=== PATIENT | male | born 1950 | race Caucasian/White ===

== ENCOUNTER 2016-05-22 12:30 | Emergency (ER) | payer OTHER ==
[2016-05-22 12:33] VITALS: TEMP 97.6; BMI 32.4
[2016-05-22] MEDS ORDERED: NS 1,000 ML IV ONE (12:47)
--- NOTE | 2016-05-22 12:47 | EDPRACDOC ---
- General Information Mode Of Arrival: Car - History of Present Illness Onset: THUR Exact Onset of Symptoms: Unknown HPI: PT STATES THAT HE FEELS DIZZY AND WEAK WHEN HE STANDS UP OFF/ON FOR THE LAST SEVERAL DAYS, PT DENIES CP OR SOBR, NO N/V/D, STATES WENT TO SEE HIS PCP TODAY AND WAS REFERRED TO THE ED BECAUSE OF LOW HEART RATE AND ABNL EKG. Symptoms Started: Reports: Suddenly, With light exertion Symptoms Description: Constant Weakness: Bilateral: Generalized Symptoms: Reports: Faintness, Weak. Denies: Change of vision, Difficult speech , Imbalance, Numbness, Near Syncope, On Med questionable toxic, Syncope, Tinnitus, Vertigo Symptom Severity: Reports: Does not affect activitiy Relevant History of: Reports: CVA. Denies: Anemia, DM, Electrolyte disorder, GI Bleed, MA, TIA Associated signs and symptoms:: Denies: GI Bleed, Chest pain, Diarrhea, Fever, Headache, Nausea, Palpitations, Vomiting <Moe Richardson - Last Filed: 05/22/16 13:57> - History of Present Illness HPI: WEAKNESS; DIZZY BUT DESCRIBES WEAKNESS; DENIES ACS SXS; SEEN AT PMD OFFICE AND SENT HERE; LABS NL; I SPOKE WITH DR. ARIAS COURTESY <Elliott Mcmahan - Last Filed: 05/22/16 14:44> - General Information Chief Complaint: Neuro Symptoms/Deficits Stated Complaint: DIZZINESS Time Seen by Provider: 05/22/16 12:40 Home Medications: Home Medications Aspirin [Aspirin EC] 81 mg PO QHS 08/28/15 Pravastatin [Pravachol] 40 mg PO HS 08/28/15 Allergies/Adverse Reactions: Allergies Allergy/AdvReac Type Severity Reaction Status Date / Time atorvastatin Allergy See Verified 05/22/16 12:33 Comments shellfish derived Allergy Hives* Verified 05/22/16 12:33 venom-honey bee Allergy Anaphylaxis Verified 05/22/16 12:33 [bee venom (honey bee)] * ED Past Medical History - History Reviewed Yes Nurses notes reviewed and agree except as marked - Patient Medical History Neurological History: Reports: Cerebrovascular Accident (04/2013 ) Cardiac History: Reports: Hypercholesterolemia Respiratory History: Musculoskeletal History: Reports: Osteoarthritis Psychological History: Denies: Substance Use Disorder Surgical History: Reports: Hernia Surgery (BILATERAL INGUINAL HERNIA REPAIR) - Family Medical History Reports: Hypertension (MOTHER, SIBLINGS), Diabetes (MOTHER BORDERLINE), Cancer ( AUNT BREAST CA), Stroke (MATERNAL AUNT AT 42), Cardiac Disorders (FATHER), Respiratory Disorders (Dad- COPD, emphysema) - Social Medical History Smoking Status: Former smoker Social History: Denies: Substance Use Disorder ETOH: None Substance Abuse: None <DylanMoe - Last Filed: 05/22/16 13:57> EDM Review of Systems - Review of Systems Constitutional: Weakness. negative: Chills, Fever, Fatigue Eyes: negative: Blurred Vision, Double Vision Ears: negative: Drainage Throat: negative: Pain Nose: negative: Congestion, Discharge Respiratory: negative: Cough, Shortness of Breath, Wheezing Cardiovascular: negative: Chest Pain, Palpitations, Syncope Gastrointestinal: negative: Diarrhea, Nausea, Pain, Vomiting Genitourinary: negative: Dysuria, Frequency Neurological: Dizziness, Weakness. negative: Headache, Numbness Musculoskeletal: No Symptoms Reported Integumentary: No Symptoms Reported <DylanMoe - Last Filed: 05/22/16 13:57> - Physical Exam Constitutional: Alert (Awake), No apparent distress Oriented to: Time, Person, Place Last recorded Vital Signs: Last Vital Signs Temp 97.6 F 05/22/16 12:31 Pulse 67 05/22/16 12:33 Resp 20 05/22/16 12:33 BP 173/93 05/22/16 12:33 Pulse Ox 95 05/22/16 12:33 Oxygen Pulse Oxygen Saturation 95 O2 Device Oxygen Flow Rate Fraction of Inspired Oxygen ( FIO2) - HEENT Head: Normal ( normocephalic) Eye Exam: Normal (PERRL, EOMI, Sclera white) Oropharynx: Normal (Pharynx:Moist without exudate,Gums-no swelling) Tympanic Membrane: Normal ENT EAC: Normal TMJ: Normal Nose: No Symptoms Reported (septum midline) Neck: Normal (FROM, trachea at midline) - Respiratory/Cardiovascular Respiratory: Normal - CTA (BBS clear to auscultation without adventitious sounds ) Cardiovascular: Normal (RRR without murmur, gallop or rub) - GI Auscultation: Normal (NABS) Palpation: Normal (Soft,No rebound or guarding, non distended) Tenderness: Non tender Land's Sign: Negative - Musculoskeletal Back: Normal (Non-Tender) Extremities: Normal (Normal tone, Pulses 2+ No cyanosis or edema, FROM) - Integumentary Skin: Normal, Warm, Dry Lymphatics: Normal (no adenopathy) - Neurologic Memory Impaired: Normal Motor Function: Normal (Normal tone, Pulses 2+ No cyanosis or edema, FROM) Cranial Nerve: Normal (CN II-X11 intact sensation, strength 5/5) Cerebellar: Normal Mood Description: Normal Perception: Normal <Moe Richardson - Last Filed: 05/22/16 13:57> - Physical Exam Last recorded Vital Signs: Last Vital Signs Temp 97.6 F 05/22/16 12:31 Pulse 63 05/22/16 14:13 Resp 19 05/22/16 13:20 BP 172/91 05/22/16 14:13 Pulse Ox 97 05/22/16 13:20 Oxygen Pulse Oxygen Saturation 97 O2 Device Room Air Oxygen Flow Rate Fraction of Inspired Oxygen ( FIO2) <Elliott Mcmahan - Last Filed: 05/22/16 14:44> - Results 05/22/16 12:36 05/22/16 12:36 - EKG EKG #1 EKG Time: 12:37 -: Yes EKG interpreted by me Rate: bpm: 59 Avant: Normal Rhythm: SB Block: RBBB Hypertrophy: None ST: Nonsp Comparison: 08/28/15 (NO CHANGE) - Diagnostic Imaging CT HEAD Image interpreted by: Radiologist CT HEAD WITHOUT CONTRAST TECHNIQUE: Contiguous axial images were obtained from the base of the skull through the vertex without intravenous contrast. COMPARISON: 04/25/2014 FINDINGS: Brain: No evidence of acute infarction, hemorrhage, extra-axial collection, ventriculomegaly, or mass effect. Posterior encephalomalacia in the left cerebellum is consistent with prior infarct. Other areas of lacunar cerebellar infarction demonstrated by prior MRI are not well seen. Vascular: No hyperdense vessel. Intracranial carotid artery calcifications are seen. Skull: Negative for fracture or focal lesion. Sinuses/Orbits: No acute findings. Other: None. IMPRESSION: No acute intracranial abnormality. Prior left cerebellar infarct. <Moe Richardson - Last Filed: 05/22/16 13:57> - Results 05/22/16 12:36 05/22/16 12:36 WBC 7.6 xk/uL (3.8-10.8) 05/22/16 12:36 RBC 5.09 xM/uL (4.70-6.10) 05/22/16 12:36 Hgb 15.6 g/dL (14.0-18.0) 05/22/16 12:36 Hct 46.6 % (42-52) 05/22/16 12:36 MCV 92 fL (80-94) 05/22/16 12:36 MCH 30.7 pg (27-32) 05/22/16 12:36 MCHC 33.5 g/dl (33-36) 05/22/16 12:36 RDW 13.6 % (11.5-14.5) 05/22/16 12:36 Plt Count 281 xk/uL (130-400) 05/22/16 12:36 MPV 7.8 fL (7.4-10.4) 05/22/16 12:36 Neut % (Auto) 55.6 % (45-76) 05/22/16 12:36 Lymph % (Auto) 30.8 % (17-44) 05/22/16 12:36 Mills % (Auto) 10.2 % (3-10) H 05/22/16 12:36 Eos % (Auto) 2.0 % (0-5) 05/22/16 12:36 Baso % (Auto) 1.4 % (0-2) 05/22/16 12:36 Absolute Neuts (auto) 4.18 xk/uL (1.7-8.2) 05/22/16 12:36 Absolute Lymphs (auto) 2.28 xk/uL (0.65-4.75) 05/22/16 12:36 PT 11.0 SEC (9.2-11.2) 05/22/16 12:36 INR 1.1 05/22/16 12:36 APTT 27.2 SEC (22-35) 05/22/16 12:36 Sodium 141 mEq/L (137-146) 05/22/16 12:36 Potassium 4.0 mEq/L (3.5-5.1) 05/22/16 12:36 Chloride 101 mEq/L (98-107) 05/22/16 12:36 Carbon Dioxide 29 mMOL/L (22-33) 05/22/16 12:36 Anion Gap 15 mEq/L (8-16) 05/22/16 12:36 BUN 14 MG/DL (9-20) 05/22/16 12:36 Creatinine 0.90 MG/DL (0.66-1.25) 05/22/16 12:36 Estimated GFR (MDRD) > 60 mL/min (>=60) 05/22/16 12:36 Glucose 107 mg/dL (70-99) H 05/22/16 12:36 Calculated Osmolality 272 MOs/Kg (270-290) 05/22/16 12:36 Calcium 9.4 MG/DL (8.4-10.2) 05/22/16 12:36 Total Bilirubin 0.5 MG/DL (0.2-1.3) 05/22/16 12:36 AST 29 IU/L (17-59) 05/22/16 12:36 ALT 44 IU/L (21-72) 05/22/16 12:36 Alkaline Phosphatase 78 IU/L (50-160) 05/22/16 12:36 Troponin I < 0.01 ng/mL (<.04) 05/22/16 12:36 Total Protein 7.5 G/DL (6.3-8.2) 05/22/16 12:36 Albumin 4.3 G/DL (3.5-5.0) 05/22/16 12:36 Lipase 91 U/L (23-300) 05/22/16 12:36 Urine Color Yellow 05/22/16 13:25 Urine Clarity Clear 05/22/16 13:25 Urine pH 6.0 (5.0-8.0) 05/22/16 13:25 Ur Specific [place] 1.005 (1.003-1.035) 05/22/16 13:25 Urine Protein Neg (NEG/TRACE) 05/22/16 13:25 Urine Glucose (UA) Neg (NEGATIVE) 05/22/16 13:25 Urine Ketones Neg (NEGATIVE) 05/22/16 13:25 Urine Occult Blood Neg (NEG/TRACE) 05/22/16 13:25 Urine Nitrite Neg (NEGATIVE) 05/22/16 13:25 Urine Bilirubin Neg (NEGATIVE) 05/22/16 13:25 Urine Urobilinogen <2.0 MG/DL (0-1) 05/22/16 13:25 Ur Leukocyte Esterase Neg (NEGATIVE) 05/22/16 13:25 Urine RBC 0-2 (0-2) 05/22/16 13:25 Urine WBC 0-2 (0-2) 05/22/16 13:25 Lab Results 05/22/16 05/22/16 05/22/16 13:25 12:36 12:36 WBC 7.6 RBC 5.09 Hgb 15.6 Hct 46.6 MCV 92 MCH 30.7 MCHC 33.5 RDW 13.6 Plt Count 281 MPV 7.8 Neut % (Auto) 55.6 Lymph % (Auto) 30.8 Mills % (Auto) 10.2 H Eos % (Auto) 2.0 Baso % (Auto) 1.4 Absolute Neuts (auto) 4.18 Absolute Lymphs (auto) 2.28 PT 11.0 INR 1.1 APTT 27.2 Sodium Potassium Chloride Carbon Dioxide Anion Gap BUN Creatinine Estimated GFR (MDRD) Glucose Calculated Osmolality Calcium Total Bilirubin AST ALT Alkaline Phosphatase Troponin I Total Protein Albumin Lipase Urine Color Yellow Urine Clarity Clear Urine pH 6.0 Ur Specific [place] 1.005 Urine Protein Neg Urine Glucose (UA) Neg Urine Ketones Neg Urine Occult Blood Neg Urine Nitrite Neg Urine Bilirubin Neg Urine Urobilinogen <2.0 Ur Leukocyte Esterase Neg Urine RBC 0-2 Urine WBC 0-2 05/22/16 12:36 WBC RBC Hgb Hct MCV MCH MCHC RDW Plt Count MPV Neut % (Auto) Lymph % (Auto) Mills % (Auto) Eos % (Auto) Baso % (Auto) Absolute Neuts (auto) Absolute Lymphs (auto) PT INR APTT Sodium 141 Potassium 4.0 Chloride 101 Carbon Dioxide 29 Anion Gap 15 BUN 14 Creatinine 0.90 Estimated GFR (MDRD) > 60 Glucose 107 H Calculated Osmolality 272 Calcium 9.4 Total Bilirubin 0.5 AST 29 ALT 44 Alkaline Phosphatase 78 Troponin I < 0.01 Total Protein 7.5 Albumin 4.3 Lipase 91 Urine Color Urine Clarity Urine pH Ur Specific [place] Urine Protein Urine Glucose (UA) Urine Ketones Urine Occult Blood Urine Nitrite Urine Bilirubin Urine Urobilinogen Ur Leukocyte Esterase Urine RBC Urine WBC <Elliott Mcmahan - Last Filed: 05/22/16 14:44> <Moe Richardson - Last Filed: 05/22/16 13:57> Decision Time to Discharge: 14:43 - Departure Yes I personally saw and evaluated the patient. Disposition: Home Education/Counseling Given To: Patient, Family Member Education/Counseling Given Regarding: Diagnosis, Treatment, Prognosis - Physician Consulted Other Time Called: 14:43 (JUANA) <Elliott Mcmahan - Last Filed: 05/22/16 14:44> - Departure Condition: Good Final Diagnosis: WEAKNESS Instructions: Weakness (ED) Referrals: Lauri Arias MD [Primary Care Provider] - One Week Prescriptions: No Action Pravastatin [Pravachol] 40 mg PO HS Aspirin [Aspirin EC] 81 mg PO QHS
[2016-05-22 13:02] LABS: AUTOMATED BASOPHIL 1.4 % (0-2); AUTOMATED LYMPH 30.8 % (17-44); AUTOMATED MONOCYTE 10.2 % (3-10); AUTOMATED NEUTROPHIL 55.6 % (45-76); MPV 7.8 fL (7.4-10.4)
[2016-05-22 13:16] LABS: PARTIAL THROMB. TIME 27.2 SEC (22-35); PT-INR 1.1
[2016-05-22 13:19] LABS: BLOOD UREA NITROGEN 14 MG/DL (9-20); CALCIUM 9.4 MG/DL (8.4-10.2); CALCULATED OSMOLALITY 272 MOs/Kg (270-290); CHLORIDE 101 mEq/L (98-107); GLUCOSE 107 mg/dL (70-99); SODIUM LEVEL 141 mEq/L (137-146); TOTAL PROTEIN 7.5 G/DL (6.3-8.2)
--- NOTE | 2016-05-22 13:30 | DIRPT ---
CLINICAL DATA: Dizziness, and nausea for 4 days. History of stroke in 2015. EXAM: CT HEAD WITHOUT CONTRAST TECHNIQUE: Contiguous axial images were obtained from the base of the skull through the vertex without intravenous contrast. COMPARISON: 04/25/2014 FINDINGS: Brain: No evidence of acute infarction, hemorrhage, extra-axial collection, ventriculomegaly, or mass effect. Posterior encephalomalacia in the left cerebellum is consistent with prior infarct. Other areas of lacunar cerebellar infarction demonstrated by prior MRI are not well seen. Vascular: No hyperdense vessel. Intracranial carotid artery calcifications are seen. Skull: Negative for fracture or focal lesion. Sinuses/Orbits: No acute findings. Other: None. IMPRESSION: No acute intracranial abnormality. Prior left cerebellar infarct. Electronically Signed By: Mattie Edwards M.D. On: 05/22/2016 13:27
[2016-05-22 13:48] LABS: LEUKOCYTES/URINE NEG (NEGATIVE); NITRITE/URINE NEG (NEGATIVE); RBC/URINE 0-2 (0-2); URINE OCCULT BLOOD NEG (NEG/TRACE); WBC/URINE 0-2 (0-2)
--- NOTE | 2016-05-22 14:09 | DIRPT ---
CLINICAL DATA: Syncope, dizziness. EXAM: PORTABLE CHEST 1 VIEW COMPARISON: April 25, 2014. FINDINGS: The heart size and mediastinal contours are within normal limits. Both lungs are clear. No pneumothorax or pleural effusion is noted. The visualized skeletal structures are unremarkable. IMPRESSION: No acute cardiopulmonary abnormality seen. Electronically Signed By: Chele Mahoney Jr, M.D. On: 05/22/2016 14:06
[2016-05-22 14:14] VITALS: BP 172/91; PULSE 63
== END 2016-05-22 15:00 | disposition home or self-care (01) ==
LOC: ED 12:30
DX: R53.1 Weakness (principal); R42 Dizziness and giddiness
CPT/HCPCS: 36415; 70450; 71010; 80053; 81001; 83690; 84484; 85025; 85610; 85730; 93005; 96360; 96361; 99284